=== PATIENT | female | born 1985 | race Caucasian/White ===

== ENCOUNTER 2019-07-25 09:12 | Emergency (ER) | payer OTHER ==
[~2019-07-25] VITALS: Ht 175.3 cm; Wt 77.3 kg
[~2019-07-25 09:12] MED LIST: ALPR0.255 PO; ASPI-1182 PO; BUPR100SR PO; LAMO100 PO
[2019-07-25] MEDS ORDERED: GABA-529 PO (09:27)
[2019-07-25] MEDS ORDERED: ARIP5TAB8 PO (09:27)
[2019-07-25] MEDS ORDERED: OXCA300T29 PO (09:27)
[2019-07-25] MEDS ORDERED: LORA10TA7 PO (09:27)
[2019-07-25] MEDS ORDERED: SULFAMETHOX/TRIMETH DS 800-160 MG/TABLET PO ONE (10:30)
[2019-07-25 11:19] LABS: BASOPHILS % (AUTO) 0.6 % (0.0-2.0); EOSINOPHILS % (AUTO) 3.3 % (1.0-6.0); HEMATOCRIT 39.9 % (36-46); HEMOGLOBIN 13.2 g/dL (12.0-16.0); LYMPHOCYTES # (AUTO) 1.2 K/uL (1.0-4.8); LYMPHOCYTES % (AUTO) 18.7 % (22.0-44.0); MEAN CORPUSCULAR HEMOGLOBIN 29.9 pg (26.0-34.0); MEAN CORPUSCULAR VOLUME 91 fL (80-100); MONOCYTES # (AUTO) 0.5 K/uL (0.1-1.0); MONOCYTES % (AUTO) 7.6 % (2.0-9.0); NEUTROPHILS # (AUTO) 4.5 K/uL (1.8-7.7); NEUTROPHILS % (AUTO) 69.8 % (40.0-70.0); PLATELET COUNT (AUTO) 245 K/uL (150-450); RED CELL DISTRIBUTION WIDTH 13.3 % (11.5-14.5)
[2019-07-25 11:30] LABS: ANION GAP 11 mmol/L (8-16); CALCIUM, TOTAL 9.1 mg/dL (8.8-10.5); CARBON DIOXIDE 25 mmol/L (22-29); CHLORIDE 105 mmol/L (98-107); CREATININE 0.84 mg/dL (0.60-1.30); GLOMERULAR FILTR. RATE CALC > 60 mL/min (>60); GLUCOSE,RANDOM 84 mg/dL (70-110); POTASSIUM 3.4 mmol/L (3.5-5.1); SODIUM SERUM 141 mmol/L (136-145); UREA NITROGEN, BLOOD 10 mg/dL (7-18)
[2019-07-25 11:37] LABS: ALANINE AMINOTRANSFERASE 30 U/L (12-78); ALKALINE PHOSPHATASE 54 U/L (46-116); ASPARTATE AMINOTRANSFERASE 23 U/L (15-37); BILIRUBIN,TOTAL 0.3 mg/dL (0.1-1.0); TOTAL PROTEIN, SERUM 7.6 g/dL (6.4-8.2)
[2019-07-25 12:00] VITALS: BP 118/74
[2019-07-25] MEDS ORDERED: DOXYCYCLINE HYCLATE 100 MG CAPSULE PO ONE (12:00)
== END 2019-07-25 12:27 | disposition home or self-care (01) ==
LOC: EMS 09:13
DX: L03.221 Cellulitis of neck (principal); L98.9 Disorder of the skin and subcutaneous tissue, unspecified; F31.9 Bipolar disorder, unspecified; F17.210 Nicotine dependence, cigarettes, uncomplicated; F19.90 Other psychoactive substance use, unspecified, uncomplicated; Z88.0 Allergy status to penicillin

== ENCOUNTER 2021-04-28 09:14 | Inpatient (IN) | payer MEDICAID, OTHER ==
[~2021-04-28] VITALS: Ht 175.3 cm; Wt 76.2 kg
[~2021-04-28 09:14] MED LIST changes: -ALPR0.255 PO; +ARIP5TAB37 PO; -ASPI-1182 PO; -BUPR100SR PO; +GABA-1216 PO; -LAMO100 PO; +LORA10TA7 PO; +OXCA300T57 PO
[2021-04-28 13:21] LABS: ANION GAP 12 mmol/L (8-16); CALCIUM, TOTAL 8.8 mg/dL (8.8-10.5); CARBON DIOXIDE 24 mmol/L (22-29); CHLORIDE 105 mmol/L (98-107); CREATININE 0.85 mg/dL (0.60-1.30); GLOMERULAR FILTR. RATE CALC > 60 mL/min (>60); GLUCOSE,RANDOM 132 mg/dL (70-110); POTASSIUM 3.3 mmol/L (3.5-5.1); SODIUM SERUM 141 mmol/L (136-145); UREA NITROGEN, BLOOD 20 mg/dL (7-18)
[2021-04-28] MEDS ORDERED: POTASSIUM CHLORIDE 20 MEQ ER TABLET PO ONE (13:30)
[2021-04-28 13:32] LABS: ALANINE AMINOTRANSFERASE 18 U/L (12-78); ALBUMIN 3.8 g/dL (3.4-5.0); ALKALINE PHOSPHATASE 65 U/L (46-116); ASPARTATE AMINOTRANSFERASE 13 U/L (15-37); BILIRUBIN,TOTAL 0.3 mg/dL (0.1-1.0); HCG,QUANTITATIVE < 1 mIU/mL (0-6); TOTAL PROTEIN, SERUM 7.6 g/dL (6.4-8.2)
[2021-04-28] MEDS ORDERED: HALOPERIDOL LACTATE 5 MG/ML VIAL IM ONE (13:45)
[2021-04-28] MEDS ORDERED: DiphenhydrAMINE HCL 50 MG/ML VIAL IM ONE (13:45)
[2021-04-28] MEDS ORDERED: LORazepam 2 MG/ML VIAL IM ONE (13:45)
[2021-04-28 15:44] LABS: BASOPHILS % (AUTO) 0.4 % (0.0-2.0); EOSINOPHILS % (AUTO) 3.1 % (1.0-6.0); HEMATOCRIT 38.9 % (36-46); HEMOGLOBIN 12.9 g/dL (12.0-16.0); LYMPHOCYTES # (AUTO) 2.8 K/uL (1.0-4.8); LYMPHOCYTES % (AUTO) 27.2 % (22.0-44.0); MEAN CORPUSCULAR HEMOGLOBIN 29.8 pg (26.0-34.0); MEAN CORPUSCULAR HGB CONC 33.1 G/dL (31.0-37.0); MEAN CORPUSCULAR VOLUME 90 fL (80-100); MONOCYTES # (AUTO) 0.6 K/uL (0.1-1.0); NEUTROPHILS # (AUTO) 6.5 K/uL (1.8-7.7); NEUTROPHILS % (AUTO) 63.3 % (40.0-70.0); PLATELET COUNT (AUTO) 284 K/uL (150-450); RED BLOOD CELL COUNT(AUTO) 4.32 MIL/uL (4.00-5.20); RED CELL DISTRIBUTION WIDTH 13.1 % (11.5-14.5)
[2021-04-28 16:43] LABS: COVID AG,FIA SOURCE NASOPHARYNGEAL
[2021-04-28] MEDS ORDERED: ZOLPIDEM TARTRATE 10 MG TABLET PO PRN (17:00)
[2021-04-28] MEDS ORDERED: PROMETHAZINE HCL 25 MG TABLET PO PRN (17:00)
[2021-04-28] MEDS ORDERED: HydrOXYzine PAMOATE 50 MG CAPSULE PO PRN (17:00)
[2021-04-28] MEDS ORDERED: MAG HYDROX/AL HYDROX/SIMETH ES 30 ML SUSPENSION UDCUP PO PRN (17:00)
[2021-04-28] MEDS ORDERED: GuaiFENesin/D-METHORPHAN [SUGAR-FREE] 200-20MG/10 ML SYRUP UDCUP PO PRN (17:00)
[2021-04-28] MEDS ORDERED: MAGNESIUM HYDROXIDE SUSPENSION 30 ML UDCUP PO PRN (17:00)
[2021-04-28] MEDS ORDERED: LORazepam 2 MG TABLET PO PRN (17:00)
[2021-04-28] MEDS ORDERED: TUBERCULIN, PURIFIED PROTEIN DERIVATIVE 5 TU/0.1 ML SYRINGE ID ONE (17:00)
[2021-04-28] MEDS ORDERED: ACETAMINOPHEN 325 MG TABLET PO PRN (17:00)
[2021-04-28] MEDS ORDERED: LOPERAMIDE HCL 2 MG CAPSULE PO PRN (17:00)
[2021-04-28] MEDS ORDERED: OLANZapine 5 MG RAPDIS TABLET PO PRN (17:00)
[2021-04-28] MEDS ORDERED: OLANZapine 5 MG RAPDIS TABLET PO SCH (21:00)
[2021-04-28] MEDS: THIAMINE 100 MG TABLET PO SCH (21:36)
[2021-04-28] MEDS: MELATONIN 5 MG TABLET PO SCH (21:37)
[2021-04-28 21:48] VITALS: BP 120/78
[2021-04-29 02:10] VITALS: BP 124/80
[2021-04-29] MEDS ORDERED: PNEUMOCOCCAL VACCINE POLYVALENT 0.5 ML VIAL [PPSV23] IM. ONE (03:30)
[2021-04-29 07:36] LABS: HEMOGLOBIN A1C 5.3 % (3.8-5.6)
[2021-04-29 07:51] LABS: CHOL/HDL RATIO 2.6 (3.9-5.7); FREE T4 (FREE THYROXINE) 1.3 ng/dL (0.76-1.46); THYROID STIMULATING HORMONE 1.89 uIU/mL (0.36-3.74)
[2021-04-29 08:25] VITALS: BP 108/67
[2021-04-29] MEDS: LamoTRIgine 25 MG TABLET PO SCH (08:46)
[2021-04-29] MEDS: OMEGA-3/DHA/EPA/FISH OIL 1,000 MG CAPSULE PO SCH (08:46)
[2021-04-29] MEDS: THIAMINE 100 MG TABLET PO SCH ×2 (08:46→16:30)
[2021-04-29] MEDS: MULTIVITAMINS WITH MINERALS, THERAPEUTIC TABLET PO SCH (08:46)
[2021-04-29] MEDS: FOLIC ACID 1 MG TABLET PO SCH (08:46)
[2021-04-29] MEDS ORDERED: BuPROPion HCL XL 150 MG ER TABLET PO SCH (09:00)
[2021-04-29] MEDS ORDERED: ATOMOXETINE HCL 10 MG CAPSULE PO SCH (09:00)
[2021-04-29] MEDS: POTASSIUM CHLORIDE 20 MEQ ER TABLET PO SCH ×2 (10:13→16:18)
[2021-04-29] MEDS: DOXYCYCLINE HYCLATE 100 MG TABLET PO SCH ×2 (10:13→16:30)
[2021-04-29 16:19] VITALS: BP 110/63
[2021-04-29] MEDS: GABAPENTIN 300 MG CAPSULE PO SCH (16:30)
[2021-04-29] MEDS: OXcarbazepine 300 MG TABLET PO SCH (16:30)
[2021-04-29] MEDS: MELATONIN 5 MG TABLET PO SCH (21:03)
[2021-04-29] MEDS: OLANZapine 10 MG RAPDIS TABLET PO SCH (21:03)
[2021-04-29] MEDS: FLUoxetine HCL 20 MG CAPSULE PO SCH (21:19)
[2021-04-30 00:55] VITALS: BP 101/62
[2021-04-30 08:02] VITALS: BP 100/60
[2021-04-30] MEDS: FOLIC ACID 1 MG TABLET PO SCH (08:40)
[2021-04-30] MEDS: LamoTRIgine 25 MG TABLET PO SCH (08:40)
[2021-04-30] MEDS: GABAPENTIN 300 MG CAPSULE PO SCH ×3 (08:40→16:08)
[2021-04-30] MEDS: MULTIVITAMINS WITH MINERALS, THERAPEUTIC TABLET PO SCH (08:40)
[2021-04-30] MEDS: THIAMINE 100 MG TABLET PO SCH ×2 (08:40→16:08)
[2021-04-30] MEDS: ATOMOXETINE HCL 18 MG CAPSULE PO SCH (08:40)
[2021-04-30] MEDS: OMEGA-3/DHA/EPA/FISH OIL 1,000 MG CAPSULE PO SCH (08:40)
[2021-04-30] MEDS: DOXYCYCLINE HYCLATE 100 MG TABLET PO SCH ×2 (08:41→16:09)
[2021-04-30] MEDS: OXcarbazepine 300 MG TABLET PO SCH ×2 (08:41→16:08)
[2021-04-30] MEDS ORDERED: MELA5TAB3 PO (14:39)
[2021-04-30] MEDS ORDERED: OLAN10TA26 PO (14:39)
[2021-04-30] MEDS ORDERED: GABA-1181 PO (14:39)
[2021-04-30] MEDS ORDERED: ATOM18CA7 PO (14:39)
[2021-04-30] MEDS ORDERED: LAMO25TA66 PO (14:39)
[2021-04-30] MEDS ORDERED: OMEG-135 PO (14:39)
[2021-04-30] MEDS ORDERED: OXCA300T57 PO (14:39)
[2021-04-30] MEDS ORDERED: NALT50TA PO (14:39)
[2021-04-30] MEDS ORDERED: FLUO20CA36 PO (14:39)
[2021-04-30 16:05] VITALS: BP 106/60
[2021-04-30] MEDS: FLUoxetine HCL 20 MG CAPSULE PO SCH (20:07)
[2021-04-30] MEDS: OLANZapine 10 MG RAPDIS TABLET PO SCH (20:07)
[2021-04-30] MEDS: MELATONIN 5 MG TABLET PO SCH (20:07)
[2021-05-01 03:29] VITALS: BP 106/63
[2021-05-01 08:01] VITALS: BP 108/60
[2021-05-01] MEDS: OMEGA-3/DHA/EPA/FISH OIL 1,000 MG CAPSULE PO SCH (08:11)
[2021-05-01] MEDS: MULTIVITAMINS WITH MINERALS, THERAPEUTIC TABLET PO SCH (08:11)
[2021-05-01] MEDS: FOLIC ACID 1 MG TABLET PO SCH (08:11)
[2021-05-01] MEDS: ATOMOXETINE HCL 18 MG CAPSULE PO SCH (08:11)
[2021-05-01] MEDS: THIAMINE 100 MG TABLET PO SCH (08:11)
[2021-05-01] MEDS: LamoTRIgine 25 MG TABLET PO SCH (08:11)
[2021-05-01] MEDS: GABAPENTIN 300 MG CAPSULE PO SCH ×2 (08:11→12:34)
[2021-05-01] MEDS: OXcarbazepine 300 MG TABLET PO SCH (08:11)
[2021-05-01] MEDS: DOXYCYCLINE HYCLATE 100 MG TABLET PO SCH (08:12)
[2021-05-01] MEDS ORDERED: NALTREXONE HCL 50 MG TABLET PO SCH (09:00)
[2021-05-01] MEDS ORDERED: DOXY-354 PO ×2 (09:51→09:53)
== END 2021-05-01 15:13 | disposition home or self-care (01) | DRG 753 ==
LOC: EMS 09:15 → B2S 18:39
PROVIDERS: ADMIT Psychiatry & Neurology Psychiatry; ATTEND Psychiatry & Neurology Psychiatry
DX: F31.9 Bipolar disorder, unspecified (principal); F22 Delusional disorders; F11.90 Opioid use, unspecified, uncomplicated; F15.90 Other stimulant use, unspecified, uncomplicated; Z20.822 Contact with and (suspected) exposure to COVID-19; Z55.9 Problems related to education and literacy, unspecified; Z59.9 Problem related to housing and economic circumstances, unspecified; Z65.3 Problems related to other legal circumstances; Z87.891 Personal history of nicotine dependence; Z88.0 Allergy status to penicillin; Z88.2 Allergy status to sulfonamides; Z91.5 Personal history of self-harm; Z28.21 Immunization not carried out because of patient refusal
CPT/HCPCS: 80053; 80061; 83036; 84132; 84439; 84443; 84702; 85025; 86592; 99285; A9575; G0480